=== PATIENT | male | born 1985 | race Caucasian/White ===

== ENCOUNTER 2021-03-04 10:32 | Outpatient (CLI) | payer OTHER, SELFPAY ==
--- NOTE | 2021-03-10 12:34 | WPDHOLTEREM ---
Holter/Event Monitor Holter/Event Monitor Date of procedure: 03/04/21 Holter/Event Procedure: 48 Hr Holter Monitor Indications: Chest pain/palpitations Conclusion: 1. 48 hour holter monitor on 03/04/21. 2. Underlying rhythm is sinus rhythm. HR range 48-143 bpm; average HR 88 bpm. 3. There are 21 premature supraventricular complexes and 5 supraventricular couplets and 1 supraventricular triplet. No supraventricular tachycardia. 4. There are 14 premature ventricular complexes. No ventricular tachycardia. 5. No sinoatrial or atrioventricular blocks. No significant pauses greater than 2 seconds. 6. Patient reports symptoms of heart racing, heart flutter which demonstrate sinus rhythm, HR range 85-94 bpm.
== END 2021-03-04 10:33 | disposition home or self-care (01) ==
PROVIDERS: PCP Family Medicine; Visit Provider Nurse Practitioner Family
DX: R07.89 Other chest pain (principal); R00.2 Palpitations
CPT/HCPCS: 93225; 93226

== ENCOUNTER 2021-05-18 07:44 | Outpatient (CLI) | payer OTHER, SELFPAY ==
--- NOTE | 2021-05-19 16:35 | WPDHOMESLEEP ---
Sleep Study - Home Unattended Date of Study: 05/18/21 Ordering Provider: Nithin Muñoz DO Interpreting Provider: Keke Hough DO Home Sleep Study Type: Apnea Link Air Height: 1.88 m Weight: 146.964 kg Body Mass Index: 41.5 Neck Circumference (inches): 22 [place]: 12 Reason for Sleep Study Heart palpitations, multiple nighttime awakenings, nocturia Sleep History The patient is a 36-year-old male with migraines, heartburn and nasal congestion that had a home sleep test ordered by his category analyst. The patient occasionally awakens from sleep short of breath. He frequently awakens at night with heartburn, belching or cough. He constantly snores loud enough that others complain. He constantly has trouble breathing when he has a cold. He rarely wakes up gasping for air throughout the night. He constantly has breathing problems at night observed by himself or others. He constantly sweats excessively at night. He frequently notices heart palpitations or irregular heartbeats during the night. He frequently falls asleep during the day. He rarely falls asleep while driving. He constantly has trouble at school or work due to sleepiness. He denies cataplexy. He rarely feels unable to move while waking up or falling asleep. He occasionally experiences vivid dreamlike scenes upon awakening or falling asleep. He rarely has nightmares. He constantly has thoughts racing through his mind. He occasionally feels sad or depressed. He frequently has anxiety. He constantly has muscular tension. He occasionally notices parts of his body jerk. He occasionally kicks during the night. He frequently experiences crawling and aching feelings in his legs but rarely experiences leg pain during the night. He occasionally grades teeth during sleep but never awakens morning jaw pain. He is constantly bothered by pain during the day but rarely awakened by pain during the night. He constantly wakes up feeling stiff in the morning with sore or achy muscles. He constantly wakes up with pain in the neck, spine and other joints. He goes to bed between 8 and 10:00 p.m. on both weekdays and weekends. The amount of time it takes for him to fall asleep is variable. He wakes up 4-5 times throughout the night to urinate, get a drink due to dry mouth and try to clear chronic nasal congestion. He can fall back asleep within 10 minutes. He wakes up at 5:00 a.m. on weekdays and between 5 and 6:00 a.m. on the weekends. He typically gets 4-7 hours of sleep per night. He does not stay in bed after waking up in the morning. He currently lives with his , father Pauline and 4 children. He does not consume any caffeinated beverages within 2 hours of bedtime. He does not engage in physical exercise before bedtime. He will read before falling asleep. He does not take naps in the afternoon or the evening. He drinks 1-2 caffeinated beverages per day. He quit smoking cigarettes several years ago. He denies alcohol and recreational drug use. [facility] Past Medical History Medical History Hypertension IBS (irritable bowel syndrome) Rotator cuff arthropathy of right shoulder Stroke (cerebrum) Surgical History Surgical History Hx of knee surgery Family History Family History Mother Family history of thyroid disease Family history of cardiovascular disease Mother Hypertension Family history of arthritis Social History Social History Smoking status: Never smoker Smokeless tobacco user: chewing tobacco Smoking end date: 03/07/16 Alcohol intake: current Substance use type: hallucinogens Medications Home Medications Medication Instructions Recorded Confirmed Type cyclobenzaprine 10 mg tablet 10 mg PO QHS PRN #30 tabl
[2021-05-19 16:45] VITALS: BMI 41.5
== END 2021-05-19 10:47 | disposition home or self-care (01) ==
LOC: ANHCSM 07:46
PROVIDERS: PCP Family Medicine; Visit Provider Internal Medicine Cardiovascular Disease
DX: G47.10 Hypersomnia, unspecified (principal); G47.33 Obstructive sleep apnea (adult) (pediatric)
CPT/HCPCS: 95806

== ENCOUNTER → 2021-05-18 12:49 | Outpatient (CLI) | payer OTHER, SELFPAY ==
--- NOTE | ~2021-05-18 | MR_ITS ---
EXAMINATION: MR brain/brain stem wo con DATE: 05/18/2021 13:28 INDICATION: New daily persistent headache. TECHNIQUE: Magnetic resonance imaging (MRI) of the brain and brainstem was performed without intraven ous contrast. Sequences included sagittal and axial T1-weighted FSE, axial diffusion-weighted FS EPI, axial T2*-weighted GRE, axial T2-weighted FLAIR Propeller, and axial T2-weighted Propeller. Apparent diffusion coefficient (ADC) maps were created. COMPARISON: None. FINDINGS: There is no intracranial hemorrhage, acute infarction, or abnormal intracranial mass lesion . The ventricles are normal in size. There is mild mucosal thickening in the ethmoid sinuses. The orb its are normal. The mastoid air cells are normal. IMPRESSION: 1. Normal brain. Reviewed, dictated and finalized at location A. IMPRESSION: 1. Normal brain.
== END ==
PROVIDERS: PCP Family Medicine; Visit Provider Nurse Practitioner Family
DX: G44.52 New daily persistent headache (NDPH) (principal); Z86.69 Personal history of other diseases of the nervous system and sense organs
CPT/HCPCS: 70551

== ENCOUNTER 2021-12-03 10:06 | Outpatient (CLI) | payer OTHER, SELFPAY ==
--- NOTE | 2021-12-03 10:11 | EST_ITS ---
Patient Info Name: Joey Rosa Age: 36 years : 1985 Gender: Male Ht: 74 in Wt: 340 lbs BSA: 2.91 m2 Exam Date: 12/03/2021 10:47 AM Exam Location: [facility] Stress Patient Status: Outpatient Admit Date: 12/03/2021 Staff Ordering Physician: Victor Hugo Gomez NP Attending Provider: Victor Hugo Gomez NP Exercise Technologist: Marti Riggs RDCS Exercise Physician: Nithin Muñoz DO Exam Type: CA stress test treadmill Study Info Indications R07.9 - Chest pain, unspecified R06.09 - Other forms of dyspnea R00.0 - Tachycardia, unspecified A treadmill exercise stress test was performed. Summary 1. 1. Negative Artem exercise stress test for ischemic ST changes by ECG criteria. 2. 2. Reduced functional capacity, achieving 7 METs of workload. 3. 3. Appropriate HR response to exercise. 4. 4. Appropriate HR recovery at 1 minute post exercise. 5. 5. No imaging with stress testing. 6. 6. Patient informed of the above results. Protocol: Artem Stress ECG Details Stage: REST Duration (min): 3 min : 40 sec Speed (mph): 0.0 Grade (%): 0 HR (bpm): 71 SBP (mmHg): 125 DBP (mmHg): 71 METS: --- Stage: REST Duration (min): 4 min : 37 sec Speed (mph): 0.0 Grade (%): 0 HR (bpm): 75 SBP (mmHg): 125 DBP (mmHg): 71 METS: --- Stage: STAGE 1 Duration (min): 1 min : 0 sec Speed (mph): 1.7 Grade (%): 10 HR (bpm): 112 SBP (mmHg): 125 DBP (mmHg): 71 METS: --- Stage: STAGE 1 Duration (min): 2 min : 0 sec Speed (mph): 1.7 Grade (%): 10 HR (bpm): 124 SBP (mmHg): 125 DBP (mmHg): 71 METS: --- Stage: STAGE 1 Duration (min): 3 min : 0 sec Speed (mph): 1.7 Grade (%): 10 HR (bpm): 127 SBP (mmHg): 166 DBP (mmHg): 69 METS: --- Stage: STAGE 2 Duration (min): 1 min : 0 sec Speed (mph): 2.5 Grade (%): 12 HR (bpm): 144 SBP (mmHg): 166 DBP (mmHg): 69 METS: --- Stage: STAGE 2 Duration (min): 2 min : 0 sec Speed (mph): 2.5 Grade (%): 12 HR (bpm): 152 SBP (mmHg): 169 DBP (mmHg): 89 METS: --- Stage: STAGE 2 Duration (min): 3 min : 0 sec Speed (mph): 2.5 Grade (%): 12 HR (bpm): 162 SBP (mmHg): 169 DBP (mmHg): 89 METS: --- Stage: STAGE 3 Duration (min): 0 min : 15 sec Speed (mph): 3.4 Grade (%): 14 HR (bpm): 163 SBP (mmHg): 169 DBP (mmHg): 89 METS: --- Stage: RECOVERY Duration (min): 0 min : 44 sec Speed (mph): 0.0 Grade (%): 0 HR (bpm): 144 SBP (mmHg): 201 DBP (mmHg): 66 METS: --- Stage: RECOVERY Duration (min): 1 min : 44 sec Speed (mph): 0.0 Grade (%): 0 HR (bpm): 120 SBP (mmHg): 201 DBP (mmHg): 66 METS: --- Stage: RECOVERY Duration (min): 2 min : 44 sec Speed (mph): 0.0 Grade (%): 0 HR (bpm): 106 SBP (mmHg): 201 DBP (mmHg): 66 METS: ---
== END 2021-12-03 10:07 | disposition home or self-care (01) ==
PROVIDERS: PCP Family Medicine; Visit Provider Nurse Practitioner Family
DX: R00.0 Tachycardia, unspecified (principal); R07.89 Other chest pain; R06.09 Other forms of dyspnea
CPT/HCPCS: 93017

== ENCOUNTER → 2022-12-10 10:11 | Outpatient (CLI) | payer OTHER, SELFPAY ==
--- NOTE | ~2022-12-10 | XR_ITS ---
AP and oblique views of the bilateral ribs, and PA and lateral chest radiographs Clinical History: Pain Findings: No rib fracture is seen. Osseous alignment is anatomic. Lungs are clear, without focal cons olidation or pleural effusion. Cardiomediastinal contour is within normal limits. Soft tissues are un remarkable. Impression: No rib fracture is seen. Clear lungs. Reviewed, dictated and finalized at location . Impression: No rib fracture is seen. Clear lungs.
== END ==
PROVIDERS: PCP Nurse Practitioner Family; Visit Provider Nurse Practitioner Family
DX: M54.9 Dorsalgia, unspecified (principal)
CPT/HCPCS: 71046; 71110

== ENCOUNTER 2024-01-22 08:05 | Emergency (ER) | payer OTHER, SELFPAY ==
--- NOTE | ~2024-01-22 | XR_ITS ---
Right Shoulder Technique: AP and scapular Y views were obtained. Clinical History: Pain Findings: No fracture or dislocation is seen. Osseous alignment is anatomic. The glenohumeral and acr omioclavicular joint spaces are preserved. Soft tissues are unremarkable. Impression: Unremarkable right shoulder radiographs. Reviewed, dictated and finalized at [facility]. [employer] Impression: Unremarkable right shoulder radiographs.
--- NOTE | 2024-01-22 08:09 | ED_ITS ---
HPI - Extremity Injury (Upper) General Chief Complaint: Extremity Injury, Upper Stated Complaint: rt shoulder injury Time Seen by Provider: 01/22/24 08:09 Source: patient Mode of arrival: ambulatory Limitations: no limitations History of Present Illness HPI narrative: Joey is a 38-year-old male patient presenting to the clinic today with complaints of right shoulder pain/injury. He reports on Tuesday he was stret jame and felt a pop and the right shoulder with a warm sensation. Stated it start hurting until the afternoon. Has some pain radiating down the right arm. Denies any chest pain or shortness of breath. Denies any neck injury or neck pain. Has very limited mobility of the right shoulder due to pain. Has been taking Tylenol/Motrin for pain. Related Data Home Medications Medication Instructions Recorded Confirmed fluticasone propionate 50 1 spray intranasal DAILY 02/18/21 01/22/24 mcg/actuation nasal spray,suspension omeprazole magnesium 20 mg 20 mg PO DAILY 02/18/21 01/22/24 tablet,delayed release (Prilosec OTC) loratadine 10 mg tablet (Claritin) 10 mg PO DAILY 01/22/24 01/22/24 Allergies Allergy/AdvReac Type Severity Reaction Status Date / Time Penicillins Allergy Intermediate Hives Verified 01/22/24 08:20 codeine Allergy Mild elevated Verified 01/22/24 08:20 blood pressure Review of Systems Review of Systems: Pertinent positives per HPI. Patient denies any fever, chills, rash, headache, visual changes, dizziness, cough, shortness of breath, chest pain, palpitations, nausea, vomiting, diarrhea, constipation, abdominal pain, or any urinary issues. [facility] Past Medical History Medical History Hypertension IBS (irritable bowel syndrome) Morbid (severe) obesity due to excess calories Rotator cuff arthropathy of right shoulder Stroke (cerebrum) Surgical History Surgical History Hx of knee surgery Family History Family History Mother Family history of thyroid disease Family history of cardiovascular disease Family history of arthritis Hypertension Father Hyperlipidemia Sibling No problems noted. 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 There is no relevant family history pertinent to the patient complaint. Exam Narrative: General: Well-developed, morbidly obese, in no apparent distress Head: Normocephalic, atraumatic. Cardio: Regular rate and rhythm, s1 and s2 normal, no murmur appreciated. Resp: Clear to auscultation bilaterally, no rhonchi, rales, wheezing or rubs. Musculoskeletal: No deformity, tender to palpation over the right anterior shoulder, limited range of motion due to pain-unable to lift arm above head, unable to do posterior reach, and unable to touch his left shoulder with his right hand, bilateral hand grasps equal and strong, peripheral pulse strong, no edema, no cyanosis, normal gait and station Course Course Emergency Course: Portions of this record may have been created with voice recognition software. Level of Care: Express Care Visit Vital Signs Vital signs: Vital Signs Temperature 37.2 C 01/22/24 08:22 Pulse Rate 99 01/22/24 08:22 Respiratory Rate 16 01/22/24 08:22 Blood Pressure 143/92 H 01/22/24 08:22 Pulse Oximetry 98 01/22/24 08:22 Temperature 37.2 C 01/22/24 08:22 Pulse Rate 99 01/22/24 08:22 Respiratory Rate 16 01/22/24 08:22 Blood Pressure 143/92 H 01/22/24 08:22 Pulse Oximetry 98 01/22/24 08:22 Vital signs reviewed MDM - Extremity Injury (Upper) MDM Narrative Medical decision making narrative: At the time of visit patient is resting comfortably on the exam table. Patient appears to be nontoxic. Diagnostics: X-ray of the right shoulder was performed and was negative for any acute fracture or malalignment. Medications: Toradol 60 mg IM given in the clinic for pain Plan: I suspect patient has a right anterior shoulder strain. Will place on Medrol Dosepak and give him an arm sling. Recommend follow-up with his orthopedic doctor if symptoms persist Supportive measures were discussed with the patient and they voiced understanding discharge instructions and agrees to treatment plan. Return precautions reviewed Differential Diagnosis Differential diagnosis: Likely dislocation of shoulder and other (Shoulder strain, humerus fracture, AC joint separation, shoulder tendinitis, rotator cuff tear, osteoarthritis) Imaging Data Radiologist's impression: ITS Impressions Shoulder X-Ray 01/22/24 09:03 Impression: Unremarkable right shoulder radiographs. Discharge Plan Discharge Clinical Impression: Strain of muscle(s) and tendon(s) of the rotator cuff of right shoulder, initial encounter Patient Disposition: Home, Self-Care Condition: Stable Instructions: Antibiotic Form, Shoulder Sprain (ED) Additional Instructions: X-rays negative for any sign of fracture or malalignment. Rest, ice, elevate, and wear srm sling as directed Tylenol/motrin for pain as discussed. Take Medrol Dosepak as prescribed Take Flexeril as prescribed-this medication can cause sedation. Do not drive initially or drink alcohol while taking the medicine May apply a lidocaine, Aspercreme, or blue emu to the affected area to help alleviate pain Follow up with your PCP if symptoms persist more than 1 week. Follow-up with orthopedic doctor if symptoms persist-may need further imaging such as an MRI to rule out rotator cuff injury Prescriptions: New cyclobenzaprine 10 mg tablet 10 mg PO Q8H PRN (Reason: muscle spasm) 7 Days Qty: 21 0RF methylprednisolone [Medrol (Andrea)] 4 mg tablets,dose pack See Rx Instructions .ROUTE .COMPLEX Qty: 21 0RF Rx Instructions: orally per package directions No Action loratadine [Claritin] 10 mg Tablet 10 mg PO DAILY fluticasone propionate 50 mcg/actuation spray,suspension 1 spray intranasal DAILY Rx Instructions: administer into each nostril omeprazole magnesium [Prilosec OTC] 20 mg tablet,delayed release (DR/EC) 20 mg PO DAILY sumatriptan succinate 50 mg tablet See Rx Instructions PO .COMPLEX Qty: 9 0RF Rx Instructions: take 1 tab at onset of headache; if no relief may repeat 1 tab after at least 2 hrs; max = 4 tabs/24 hr PO ciprofloxacin HCl 0.3 % drops See Rx Instructions ophthalmic (eye) .COMPLEX Qty: 5 0RF Rx Instructions: put 1-2 drps in affected eye(s) every 2hr up to 8 times/day x2days; then 4 times/day x5days into the eye(s); carisoprodol [Soma] 250 mg tablet 250 mg PO QHS PRN (Reason: muscle pain) Qty: 30 0RF dicyclomine 10 mg capsule 10 mg PO TID PRN (Reason: abdominal discomfort) Qty: 90 2RF Ozempic 0.25 mg or 0.5 mg (2 mg/3 mL) pen injector See Rx Instructions .ROUTE .COMPLEX Qty: 3 1RF Dose Instruction: INJECT 0.5MG SUBCUTANEOUSLY ONCE WEEKLY Rx Instructions: INJECT 0.5MG SUBCUTANEOUSLY ONCE WEEKLY Follow-up/Referrals: Darrel Nicole MD [Primary Care Provider] - Time of Disposition: 09:11 Quality NIHSS Nursing Documentation ED NIHSS nursing documentation: reviewed/agree
[2024-01-22 08:22] VITALS: BP 143/92; PULSE 99; RESP 16; TEMP 37.2; O2SAT 98
[2024-01-22] MEDS: KETOROLAC (*BKC) 60 MG/2 ML VIAL IM (09:24)
== END 2024-01-22 09:55 | disposition home or self-care (01) ==
PROVIDERS: Emergency Provider Nurse Practitioner Family; PCP Family Medicine
DX: S46.911A Strain of unspecified muscle, fascia and tendon at shoulder and upper arm level, right arm, initial encounter (principal); X58.XXXA Exposure to other specified factors, initial encounter; I10 Essential (primary) hypertension; E66.9 Obesity, unspecified; Z68.41 Body mass index [BMI] 40.0-44.9, adult; Z86.73 Personal history of transient ischemic attack (TIA), and cerebral infarction without residual deficits; Z87.891 Personal history of nicotine dependence
CPT/HCPCS: 73030; 96372; 99213; A4565; G0463; J1885

== ENCOUNTER 2024-07-16 08:15 | Outpatient (CLI) | payer OTHER, SELFPAY ==
--- NOTE | ~2024-07-16 | US_ITS ---
COMPLETE ABDOMINAL ULTRASOUND Ordering provider: Betsy Carlson, [facility] History: . R79.89 - Other specified abnormal findings of blood chemi... . Comparison: None. FINDINGS: LIVER: Normal size and increased echogenicity. No focal hepatic lesions or perihepatic fluid collecti ons are identified. Normal portal vein flow. GALLBLADDER: Echogenic debris suggestive of sludge. Follow-up advised. No evidence for stones, gallbl adder wall thickening or pericholecystic fluid collections. Wall thickness is 3 mm. A negative sonogr aphic Sharma's sign was noted. BILIARY DUCTS: No evidence for intra or extrahepatic biliary dilation. Common bile duct measures 5 mm in diameter which is within normal limits. PANCREAS: Normal echotexture and size of the visualized portion.. SPLEEN: Normal size, echotexture and contour and measures 14.1 cm in length. KIDNEYS: Right measures 13.4x 6.3x 6.9 cm in length and the left 13.3x 6.4x 6.3 cm in length. There i s no evidence for hydronephrosis, solid renal mass, renal calculi or perinephric fluid collections. N o renal cysts. UPPER ABDOMINAL AORTA: Normal in caliber. IVC: Patent. FREE FLUID: None. IMPRESSION: Fat infiltration of the liver. Echogenic debris suggestive of gallbladder sludge. Follow-up advised. Reviewed, dictated and finalized at location A.
== END 2024-07-16 08:16 | disposition home or self-care (01) ==
LOC: MICIMG 08:15
PROVIDERS: PCP Family Medicine; Visit Provider Physician Assistant Medical
DX: K76.0 Fatty (change of) liver, not elsewhere classified (principal); R79.89 Other specified abnormal findings of blood chemistry
CPT/HCPCS: 76700

== ENCOUNTER 2024-12-13 14:32 | Outpatient (CLI) | payer OTHER, SELFPAY ==
[2024-12-13 14:42] LABS: Hematocrit 51.5 % (42.0-52.0); Hemoglobin 17.1 g/dL (14.0-18.0); Mean Corpuscular HGB Conc 33.2 g/dl (32-36); Mean Corpuscular Hemoglobin 28.6 pg (26-34); Mean Corpuscular Volume 86.1 fl (80-100); Platelet Count Result 306 k/mm3 (150-375); Red Blood Count 5.98 M/mm3 (4.6-6.20); White Blood Count 7.5 K/mm3 (4.5-10.0)
== END 2024-12-13 14:33 | disposition home or self-care (01) ==
LOC: ANHLAB 14:33
PROVIDERS: PCP Family Medicine; Visit Provider Internal Medicine Hematology & Oncology
DX: D75.1 Secondary polycythemia (principal)
CPT/HCPCS: 36415; 85027